=== PATIENT | male | born 1990 ===

== ENCOUNTER 2018-02-27 20:05 | Emergency (ER) | payer OTHER ==
[2018-02-27 20:12] VITALS: TEMP 97.7
--- NOTE | 2018-02-27 21:08 | ED PDOC ---
Hyperglycemia/Hypoglycemia Time Seen by Provider: 02/27/18 20:34 Chief Complaint (Nursing): High Blood Sugar History Per: Patient History/Exam Limitations: no limitations : The patient does not have any of the infectious symptoms listed except for those marked. Additional Complaint(s): 27 yo M w/ PMH of DM II, c/o uncontrolled BS x 1-2 months. Reports taking metformin 1000 mg BID and has been taking 2x more of his regular prescribed dose x1 month. States that he was Rx levemir by his pmd in the past, however had reservations about self-injections. He adds last time he saw his health safety specialist he was Rx glipizide which he was not comfortable taking due to its mechanism of action. Denies any fever, dizziness, CP, SOB, abdominal pain, N /V, polyphagia, polyuria, polyphagia. Reports headache only. Past Medical History Vital Signs: Last Vital Signs Temp 97.7 F 02/27/18 20:08 Pulse 77 02/27/18 20:08 Resp 16 02/27/18 20:08 BP 154/77 H 02/27/18 20:08 Pulse Ox 98 02/27/18 20:08 - Medical History PMH: Diabetes - Family History Family History: States: No Known Family Hx - Allergies Allergies/Adverse Reactions: Allergies Allergy/AdvReac Type Severity Reaction Status Date / Time No Known Allergies Allergy Verified 02/27/18 20:08 Review of Systems Constitutional: Negative for: Fever, Malaise Cardiovascular: Negative for: Chest Pain, Palpitations Respiratory: Negative for: Cough, Shortness of Breath Gastrointestinal: Negative for: Nausea, Abdominal Pain, Diarrhea Genitourinary Male: Negative for: Dysuria, Frequency Skin: Negative for: Rash, Lesions Neurological: Positive for: Headache Physical Exam - Physical Exam Appears: Positive for: Well, Non-toxic, No Acute Distress Head Exam: Positive for: ATRAUMATIC, NORMAL INSPECTION, NORMOCEPHALIC Skin: Positive for: Normal Color, Warm, DRY Eye Exam: Positive for: EOMI, Normal appearance, PERRL ENT: Positive for: Normal ENT Inspection Neck: Positive for: Normal, Painless ROM, Supple Cardiovascular/Chest: Positive for: Regular Rate, Rhythm. Negative for: Murmur Respiratory: Positive for: Normal Breath Sounds. Negative for: Rhonchi, Wheezing Gastrointestinal/Abdominal: Positive for: Normal Exam, Soft. 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 Negative for : Motor/Sensory Deficits - Laboratory Results Result Diagrams: 02/27/18 22:28 02/27/18 22:28 - ECG O2 Sat by Pulse Oximetry: 98 Medical Decision Making Medical Decision Making: Plan : - FS - IV - Labs - NS bolus FS 223 On re-evaluation, patient remains AAOx3, in no acute distress. Lab results reviewed : cbc wnl, glucose 235, ast 57 / alt 138, udip +glucose 500 otherwise (-). Diagnostic results d/w the patient in great detail. Patient advised to resume taking his normal dose of metfromin 1000 mg BID and not to take more that Rx. Advised to follow DM diet and glycemic index of foods, as this is the major cause of his BS spikes, continue to monitor his BS daily, incorporate daily light exercise. Based on history, exam and diagnostic results, plan will be for outpatient follow up. Patient instructed to follow-up with pmd and his health safety specialist in 1-2 days without fail. Return to the emergency room at any time for any new or worsening symptoms. Patient states he fully agrees with and understands discharge instructions. States that he agrees with the plan and disposition. Verbalized and repeated discharge instructions and plan. I have given the patient opportunity to ask any additional questions. Disposition - Clinical Impression Clinical Impression: Uncontrolled diabetes mellitus - Patient ED Disposition Is Patient to be Admitted: No Counseled Patient/Family Regarding: Studies Performed, Diagnosis, Need For Followup - Disposition Disposition: Routine/Home Disposition Time: 22:45 Condition: STABLE Additional Instructions: Thank you for letting us take care of you today. You were treated for uncontrolled DM. The emergency medical care you received today was directed towards the acute presenting symptoms. resume taking your normal dose of metformin, follow DM diet, continue to monitor BS daily. Return to the Emergency Department at any time if symptoms worsen, do not improve, or if any other problems arise. Please contact your doctor in 2 days for re-evaluation and follow up. Bring any paperwork you were given at discharge with you along with any medications to your follow up visit. Our treatment cannot replace ongoing medical care by a primary care provider (PCP) outside of the emergency department. Thank you for allowing the [facility] team to be part of your care today. 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
[2018-02-27] MEDS ORDERED: Sodium Chloride 0.9% 1,000 ML IV STA (22:21)
[2018-02-27 22:39] LABS: BASO % 0.3 % (0.0-2.0); EOS # 0.1 K/uL (0.0-0.7); HEMOGLOBIN 15.5 g/dL (12.0-18.0); LYMPH # 1.7 K/uL (1.0-4.3); LYMPH % 23.3 % (20.0-40.0); MEAN CELL VOLUME 82.3 fl (80.0-94.0); MEAN CORPUSCULAR HEMOGLOBIN 27.9 pg (27.0-31.0); MEAN CORPUSCULAR HGB CONC 33.9 g/dL (33.0-37.0); MEAN PLATELET VOLUME 8.7 fl (7.2-11.7); MONO # 0.4 K/uL (0.0-0.8); MONO % 4.9 % (0.0-10.0); NEUT # 5.2 K/uL (1.8-7.0); NEUT % 70.5 % (50.0-75.0); RBC 5.57 Mil/uL (4.40-5.90); RED CELL DISTRIBUTION WIDTH 13.2 % (11.5-14.5); WHITE BLOOD COUNT 7.3 K/uL (4.8-10.8)
[2018-02-27 22:46] LABS: ALB/GLOB RATIO 1.5 (1.0-2.1); ALT/SGPT 138 U/L (21-72); AST/SGOT 57 U/L (17-59); BLOOD UREA NITROGEN 12 mg/dl (9-20); CALCIUM 9.8 mg/dL (8.4-10.2); GFR NON-AFRICAN AMERICAN > 60
[2018-02-27 23:55] VITALS: BP 148/78; PULSE 78; RESP 18; O2SAT 99
== END 2018-02-27 23:55 | disposition home or self-care (01) ==
LOC: H.ER 20:05
DX: E11.65 Type 2 diabetes mellitus with hyperglycemia (principal)